=== PATIENT | female | born 1970 | race Caucasian/White ===

== ENCOUNTER 2017-01-07 20:54 | Emergency (ER) | payer MEDICAID, OTHER ==
[~2017-01-07] VITALS: Ht 170.2 cm; Wt 52.2 kg
[~2017-01-07 20:54] MED LIST: NORE1PAT; THYR60TA2
[2017-01-07 20:58] VITALS: BP 131/76
== END 2017-01-07 21:26 | disposition home or self-care (01) ==
LOC: ER 21:01
DX: J02.9 Acute pharyngitis, unspecified (principal); M79.7 Fibromyalgia; Z88.8 Allergy status to other drugs, medicaments and biological substances
CPT/HCPCS: 99281; A4606; Z7610; Z7502

== ENCOUNTER 2017-01-10 15:40 | Emergency (ER) | payer MEDICAID ==
[~2017-01-10] VITALS: Ht 170.2 cm; Wt 52.2 kg
[2017-01-10 15:40] VITALS: BP 99/78
[2017-01-10] MEDS ORDERED: DIAZEPAM 5 MG/ML 2 ML DISP.SYRIN ONE (15:57)
[2017-01-10] MEDS ORDERED: ONDANSETRON HCL/PF 4 MG/2 ML VIAL ONE (15:57)
[2017-01-10] MEDS ORDERED: MECLIZINE HCL 25 MG TABLET ONE (15:57)
== END 2017-01-10 16:42 | disposition home or self-care (01) ==
LOC: ER 15:41
DX: J02.9 Acute pharyngitis, unspecified (principal); Z88.8 Allergy status to other drugs, medicaments and biological substances
CPT/HCPCS: 36415; 86308; 87070 ×2; 87880; 99284; A4606; J7030; Z7610; 86403-TC; J2405; J3360; J8597